=== PATIENT | female | born 1960 | race Caucasian/White ===

== ENCOUNTER → 2023-12-19 06:26 | Day surgery (SDC) | payer OTHER, SELFPAY | LOC: GI 06:26 | PROVIDERS: ATTENDING PHYSICIAN Internal Medicine Gastroenterology | DX: D12.2 Benign neoplasm of ascending colon (principal); K63.5 Polyp of colon; D12.5 Benign neoplasm of sigmoid colon; K57.30 Diverticulosis of large intestine without perforation or abscess without bleeding; K64.8 Other hemorrhoids; Z86.010 Personal history of colon polyps | CPT/HCPCS: 45385; 45380; 88305 ==

== ENCOUNTER → 2024-06-11 13:28 | Outpatient (REF) | payer OTHER, SELFPAY | LOC: HWRAD 13:28 | PROVIDERS: ATTENDING PHYSICIAN Family Medicine | DX: R10.32 Left lower quadrant pain (principal) | CPT/HCPCS: 74176 ==